=== PATIENT | male | born 1995 | race American Indian/Alaskan Native ===

== ENCOUNTER 2017-09-22 10:26 | Day surgery (SDC) | payer OTHER ==
[~2017-09-22] VITALS: Ht 170.2 cm; Wt 75.4 kg
[~2017-09-22 10:26] MED LIST: OMEPRAZOLE MAGN20 MG PO; RANI150; SUCR1 PO; Zofran4 MG PO
== END 2017-09-22 11:59 | disposition home or self-care (01) ==
LOC: ORSCSDS 10:26
PROVIDERS: Internal Medicine Gastroenterology
PROC: 0DB88ZX Excision of Small Intestine, Via Natural or Artificial Opening Endoscopic, Diagnostic (ICD-10-PCS; principal; 2017-09-22 11:30)
PROC: 0DB78ZX Excision of Stomach, Pylorus, Via Natural or Artificial Opening Endoscopic, Diagnostic (ICD-10-PCS; principal; 2017-09-22 11:30)
DX: R11.2 Nausea with vomiting, unspecified (principal); K20.9 Esophagitis, unspecified; R10.13 Epigastric pain; Z79.899 Other long term (current) drug therapy
CPT/HCPCS: 88305; 88342; J2250; J7120